=== PATIENT | female | born 1990 | race Caucasian/White ===

== ENCOUNTER → 2017-11-16 | Outpatient (CLI) | payer BC ==
[2017-11-16 14:17] LABS: Basophils % (A) 0 %; Eosinophils % (A) 0 %; HCT 40.4 % (34.0-46.0); HGB 13.6 gm/dL (11.4-16.0); Lymphocytes # (A) 0.8 k/uL (1.0-4.8); Lymphocytes % (A) 22 %; MCH 30.9 pg (25.0-35.0); MCHC 33.8 g/dL (31.0-37.0); MCV 91.5 fL (80.0-100.0); Mean Platelet Volume 6.8; Monocytes # (A) 0.2 k/uL (0-1.0); Monocytes % (A) 6 %; Neutrophils # (A) 2.6 k/uL (1.3-7.7); Neutrophils % (A) 69 %; Platelet Count 182 k/uL (150-450); RBC 4.41 m/uL (3.80-5.40); RDW 12.5 % (11.5-15.5); WBC 3.8 k/uL (3.8-10.6)
[2017-11-16 14:34] LABS: Anion Gap 8 mmol/L; Blood Urea Nitrogen 11 mg/dL (7-17); Carbon Dioxide 26 mmol/L (22-30); Chloride 107 mmol/L (98-107); Glucose 92 mg/dL (74-99); Potassium 3.9 mmol/L (3.5-5.1); Sodium 141 mmol/L (137-145)
== END | disposition home or self-care (01) ==
LOC: LABPAT 13:03
PROVIDERS: ATTEND Obstetrics & Gynecology
DX: Z01.812 Encounter for preprocedural laboratory examination (principal); N93.8 Other specified abnormal uterine and vaginal bleeding; N94.6 Dysmenorrhea, unspecified; R10.2 Pelvic and perineal pain
CPT/HCPCS: 36415; 80051; 82565; 82947; 84520; 85025; 87086

== ENCOUNTER 2017-11-23 05:37 | Observation (INO) | payer BC ==
[2017-11-16 12:29] VITALS: BMI 20.9
--- NOTE | 2017-11-19 14:45 | HP ---
HISTORY AND PHYSICAL HISTORY OF PRESENT ILLNESS: The patient is a 27-year-old 1, para 1-0-0-1, who presents to the hospital after several previous visits with similar complaints with a long-standing history of presumptive endometriosis that has become significantly interruptive of her lifestyle. She has had multiple interventions with many different types of oral contraceptive pills as well as the NuvaRing and Depo-Provera. She has undergone a course of Lupron in the past as well. She is currently using Depo-Provera with breakthrough symptoms and continues to have irregular bleeding. She is no longer interested in any further childbearing and has requested definitive therapy with hysterectomy. She also reports that she has moderate dyspareunia and feels that she is exhausted all medical treatment options. She is particularly concerned as both her mother and grandmother had similar situations that ultimately required hysterectomy. PAST MEDICAL HISTORY: Significant for some anxiety as well as the history of endometriosis which is presumptive in nature. She additionally has a history of possible PID in the past. PAST SURGICAL HISTORY: None. OBSTETRICAL HISTORY: 1, para 1-0-0-1 with 1 term vaginal delivery without complications. FAMILY HISTORY: Noncontributory. SOCIAL HISTORY: The patient is and works at [employer]. She is a nonsmoker and denies any alcohol, drugs, or any other social concerns. CURRENT MEDICATIONS: 1. Include Depo-Provera 150 mg intramuscularly q.3 months. 2. Aleve as needed. ALLERGIES: No known drug allergies. REVIEW OF SYSTEMS: Is confined to history of present illness. In general, this is a well-developed, well-nourished white female in no acute distress. HEENT demonstrates PERRLA, EOMI, her oropharynx is clear. Her neck is supple and without adenopathy and the thyroid is normal to palpation. Her heart has a regular rhythm and rate without murmur. Her lungs are clear to auscultation bilaterally in all rodríguez. Her abdomen is without any respiratory. Her abdomen is nondistended, has normoactive bowel sounds, soft, nontender, and without any palpable masses, hepatosplenomegaly, or hernias. Her back is without spinal or CVA tenderness. Her extremities without any cyanosis, clubbing, or edema and are nontender to palpation bilaterally. Pelvic examination demonstrates normal external genitalia and the [place] with normal vaginal mucosa and cervix. There is no cervical motion tenderness. Scratch at. There is mild cervical motion tenderness. Uterus is approximately 4-5 weeks in size, mid plane, mobile, and slightly tender. The adnexa are normal without any apparent masses but do have moderate tenderness bilaterally. ASSESSMENT AND PLAN: Chronic pelvic pain with a presumptive history of endometriosis, dyspareunia, and dysfunctional uterine bleeding: Given the degree of symptoms and the patient's attempts at multiple forms of medical intervention as well as her request for definitive treatment with hysterectomy, we have opted to proceed with Da Jose Eduardo robotically assisted laparoscopic hysterectomy with bilateral salpingectomy, diagnostic cystoscopy and possible bilateral oophorectomy pending the findings. Our intention is to leave the ovaries in situ unless removal is indicated at the time of surgery. The risks and complications of the procedures have been thoroughly discussed including the risks for bleeding, bleeding requiring transfusion, infection, and injury to local structures to specifically include the bowel, bladder, and ureters. We also discussed injuries unique to Da Jose Eduardo surgery to specifically include thermal injury and subsequent vaginal cuff dehiscence. She has understood all these concerns and has agreed to proceed. Dictation is done on November 19 for surgery on November 23, 2017. MMODL / IJN: [id number] /
[~2017-11-23 05:37] MED LIST: ceFAZolin IN SWFI 2 GM/20 ML SYRINGE IVP ONE
[2017-11-23] MEDS ORDERED: SCOPOLAMINE 1.5MG/72HR PATCH TRANSDERM ONE (05:54)
[2017-11-23] MEDS ORDERED: MIDAZOLAM 2 MG/2 ML VIAL IV PRN (05:54)
[2017-11-23] MEDS ORDERED: DEXAMETHASONE SOD PHOSPHATE 10 MG/ML 1 ML VIAL IV ONE (05:54)
[2017-11-23] MEDS ORDERED: ONDANSETRON 4 MG/2 ML VIAL IVP ONE (05:54)
[2017-11-23] MEDS ORDERED: LACTATED RINGERS 1,000 ML IV ONE ×2 (06:30→06:33)
[2017-11-23] MEDS: LIDOCAINE 1% 20 ML VIAL (10MG/ML) FOR IV START INTRADERMA PRN ×2 (06:30→06:33)
[2017-11-23] MEDS ORDERED: fentaNYL (PF) 50 MCG/ML 2 ML AMP ONE (07:30)
[2017-11-23] MEDS ORDERED: GLYCOPYRROLATE 0.2 MG/ML 2 ML VIAL ONE (07:30)
[2017-11-23] MEDS ORDERED: LIDOCAINE 1% INJ 10MG/ML (20 ML MDV) ONE (07:30)
[2017-11-23] MEDS ORDERED: NEOSTIGMINE 1 MG/ML 10 ML VIAL ONE (07:30)
[2017-11-23] MEDS ORDERED: VECURONIUM 10 MG VIAL IV ONE (07:30)
[2017-11-23] MEDS ORDERED: HYDROmorphone (PF) 1 MG/ML ONE (07:30)
[2017-11-23] MEDS ORDERED: PROPOFOL 10 MG/ML 20 ML VIAL IV ONE (07:30)
[2017-11-23] MEDS ORDERED: SUCCINYLCHOLINE CHLORIDE 100 MG/5 ML SYR IV ONE (07:30)
[2017-11-23] MEDS ORDERED: MIDAZOLAM 2 MG/2 ML VIAL ONE (07:30)
[2017-11-23] MEDS ORDERED: METOCLOPRAMIDE 5 MG/ML 2 ML VIAL IVP PRN (07:42)
[2017-11-23] MEDS ORDERED: SIMETHICONE 80 MG CHEWABLE PO PRN (07:42)
[2017-11-23] MEDS ORDERED: Acetaminophen-Codeine 300-30mg TAB PO PRN (07:42)
[2017-11-23] MEDS ORDERED: diphenhydrAMINE 50 MG/ML 1 ML VIAL IVP PRN (07:42)
[2017-11-23] MEDS ORDERED: ONDANSETRON 4 MG/2 ML VIAL IVP PRN (07:42)
[2017-11-23] MEDS ORDERED: BUPIVACAINE (PF) 0.5% 30 ML VIAL SQ ONE (08:34)
--- NOTE | 2017-11-23 09:32 | P.OP ---
Date of Procedure: 11/23/17 Preoperative Diagnosis: . Chronic pelvic pain #2. Severe dysmenorrhea #3. Dyspareunia Postoperative Diagnosis: Same Procedure(s) Performed: #1. Da Jose Eduardo robotically assisted laparoscopic hysterectomy with bilateral salpingectomy #2. Diagnostic cystoscopy Anesthesia: MI Surgeon: Joseph Gonzalez Estimated Blood Loss (ml): 100 IV fluids (ml): 600 Urine output (ml): 250 Pathology: other (Uterus and bilateral fallopian tubes) Condition: stable Disposition: PACU Operative Findings: Preoperative pelvic examination demonstrated a 4 week anteverted mobile normal shaped uterus with normal adnexa bilaterally. Uterus sounded to approximately 8 cm using the [employer] uterine manipulator. Intraoperatively, the uterus, tubes, and ovaries were entirely normal to inspection. There was some general vascular congestion within the pelvis which may have been accentuated by the patient's thin habitus. There was no obvious evidence of endometriosis. What was seen of the bowel and upper abdomen appeared normal. Following the hysterectomy, the laparoscopic and hysteroscopic view of the bladder demonstrated no evidence of damage from either side and the bilateral ureteral jets were seen. Description of Procedure: The patient was prepped and draped in usual fashion after general endotracheal anesthesia was administered by the anesthesiologist. A weighted speculum was placed and the anterior lip of the surgical single-tooth tenaculum. The Cruz catheter was placed. A [employer] uterine manipulator was used with a medium cup and seated in the usual fashion without difficulty. Attention was then turned to the abdomen where an incision was made just above the umbilicus by approximately 1-2 cm in the midline where a 5 mm optical trocar was placed in the abdominal cavity without difficulty. A pneumoperitoneum was established. A site was selected approximately 12 cm lateral to the optical port in the right lower quadrant and approximately 3-4 cm below it where an 8 mm incision was made in the transverse plane allowing insertion of an 8 mm da Jose Eduardo port under direct visualization without difficulty. A similar operation was carried out on the left side. The area between the left port and the optical port was bisected and a site selected approximately 3 cm superior to the optical port where a 10 mm incision was made in the transverse plane allowing insertion of an assistance port under direct vision station without difficulty. The camera was switched to the right lower quadrant allowing removal of the fibroid layer optical port and replacement with a 8mm da Jose Eduardo optical port. The robot was brought in and docked without difficulty. The right arm was loaded with a monopolar cautery scissors while the left arm was loaded with a [place] bipolar cautery scissors. I then presented to the console at which time the right fallopian tube was elevated and dissection of the fallopian tube from the underlying structures is carried out with bipolar and monopolar cautery. At the level of the utero-ovarian ligaments, [place] was utilized to thoroughly cauterize across the ovarian ligament and round ligament and then it was divided sharply with scissors. The broad ligament was then dissected to the level of the uterine vasculature. The bladder flap was undermined and incised sharply across the midline and reflected distally. The uterine vessels were skeletonized and then cauterized with the [place] bipolar cautery forceps. Attention was turned to the left side where similar operations were carried out without difficulty. The bladder peritoneum was developed to the midline and then the bladder reflected distally with both blunt and sharp dissection. The uterine vasculature after skeletonization was then thoroughly cauterized with the [place] as well. Each vascular pedicle was then divided sharply with the monopolar cautery scissors. The vaginal cuff was opened posteriorly identifying the cup of the V care device. This was followed circumferentially using the monopolar cautery scissors to divide the specimen from the patient. It was removed into the vagina and the scissors replaced with a laparoscopic suturing device. A stitch of 2-0 Stratafix suture was utilized to close the vaginal cuff from margin to margin in standard fashion without difficulty. Any points of bleeding along the way were made hemostatic using the [place] bipolar cautery. Hemostasis following closure appeared to be excellent. Thorough suction irrigation was then carried out and all pedicles reexamined and found to be hemostatic. The camera was left in place and the instrumentation removed. I then returned to the patient and remove the Cruz catheter allowing placement of a diagnostic cystoscope. The dome of the bladder was examined from both the laparoscopic and cystoscopic side and appeared to have no damage of any kind. The bilateral ureteral hallux was noted to have peristalsed in the view of the scope. All instrumentation was then removed including the abdominal ports. The incisions were closed with interrupted subcuticular stitches of 4-0 Vicryl followed by half-inch Steri- Strips placed with Mastisol. The incisions were infused with a total of 10 mL of half percent Marcaine divided equally between the incisions. Estimated blood loss for the case was approximately 100 mL. There were no complications. All sponge, instrument, and needle counts were correct. The patient tolerated the procedure well and proceeded to the recovery room in stable condition.
[2017-11-23] MEDS: HYDROmorphone 1 MG/ML 1 ML SYRINGE IVP PRN ×4 (09:56→10:25)
[2017-11-23] MEDS: KETOROLAC 30 MG/ML 1 ML VIAL IVP PRN ×3 (09:56→22:30)
[2017-11-23] MEDS: LACTATED RINGERS 1,000 ML IV SCH ×2 (13:30→22:31)
[2017-11-23] MEDS: SENNOSIDES-DOCUSATE SODIUM 1 EACH TAB PO SCH (22:38)
[2017-11-24] MEDS: LACTATED RINGERS 1,000 ML IV SCH (03:28)
[2017-11-24] MEDS: KETOROLAC 30 MG/ML 1 ML VIAL IVP PRN (06:18)
[2017-11-24 07:55] LABS: Basophils % (A) 0 %; Eosinophils % (A) 0 %; HGB 11.9 gm/dL (11.4-16.0); Lymphocytes # (A) 1.5 k/uL (1.0-4.8); Lymphocytes % (A) 16 %; MCH 31.3 pg (25.0-35.0); MCHC 33.2 g/dL (31.0-37.0); MCV 94.2 fL (80.0-100.0); Mean Platelet Volume 6.5; Monocytes # (A) 0.5 k/uL (0-1.0); Monocytes % (A) 5 %; Neutrophils % (A) 77 %; Platelet Count 232 k/uL (150-450); RBC 3.82 m/uL (3.80-5.40); RDW 12.8 % (11.5-15.5); WBC 9.2 k/uL (3.8-10.6)
[2017-11-24] MEDS: Acetaminophen-Codeine 300-30mg TAB PO PRN ×2 (08:32→21:13)
[2017-11-24] MEDS: SENNOSIDES-DOCUSATE SODIUM 1 EACH TAB PO SCH ×2 (08:34→21:13)
[2017-11-24] MEDS: IBUPROFEN 600 MG TAB PO PRN (16:28)
[2017-11-25] MEDS: IBUPROFEN 600 MG TAB PO PRN (06:43)
[2017-11-25 08:10] VITALS: BP 106/61; PULSE 63; RESP 18; TEMP 98.5
--- NOTE | 2017-11-25 08:46 | P.PN ---
Subjective Progress Note Date: 11/25/17 The patient was prepared for discharge from all aspects aside from the fact that she was having difficulty voiding. She was able to void very small volumes but bladder scan showed moderate to significant amounts of urine still in the bladder. As result, she remained overnight for further evaluation. She reports this morning that she has been voiding more significant volumes was smaller residuals and has no other problems or discomfort which is not managed by her current medications. Objective - Vital Signs Vital signs: Vital Signs Temp 98.5 F 11/25/17 08:00 Pulse 63 11/25/17 08:00 Resp 18 11/25/17 08:00 BP 106/61 11/25/17 08:00 Pulse Ox 98 11/25/17 08:00 Intake & Output 11/24/17 11/25/17 11/25/17 18:59 06:59 18:59 Output Total 3510 1100 Balance -3510 -1100 Output: Urine 1350 1100 Post Void Residual 2160 Other: # Voids 2 1 - Exam In general, this is a well-developed, well-nourished white female in no acute distress. Her heart has a regular rhythm and rate without murmur. Her lungs are clear to auscultation bilaterally in all rodríguez. Her abdomen is nondistended, soft, nontender, and without any palpable masses. The incisions are intact and appeared to be healing well. Her extremities without any cyanosis, clubbing, or edema and are nontender to palpation bilaterally. - Labs CBC & Chem 7: 11/24/17 06:30 Assessment and Plan (1) Dysmenorrhea Current Visit: Yes Status: Acute Code(s): N94.6 - DYSMENORRHEA, UNSPECIFIED SNOMED Code(s): 387252547 (2) Dyspareunia Current Visit: Yes Status: Acute Code(s): [id number] - SNOMED Code(s): 36240799 (3) Chronic pelvic pain in female Current Visit: Yes Status: Acute Code(s): R10.2 - PELVIC AND PERINEAL PAIN; G89.29 - OTHER CHRONIC PAIN SNOMED Code(s): 243200548 Plan: The patient has been able to void more effectively and at this point is voiding more than half of the volume in her bladder. We will discharge her to home to follow-up in the office as previously noted. The previously dictated discharge summary is unchanged aside from the day of discharge. She understands to call for any further ongoing bladder symptoms or anything else that concerned her.
== END 2017-11-25 11:00 | disposition home or self-care (01) ==
LOC: OR 05:37 → 4FBP 09:29 → OR 23:30 → 4FBP 23:30
PROVIDERS: ADMIT Obstetrics & Gynecology; ATTEND Obstetrics & Gynecology
DX: N94.6 Dysmenorrhea, unspecified (principal); G89.29 Other chronic pain; R10.2 Pelvic and perineal pain; N94.10 Unspecified dyspareunia; N92.6 Irregular menstruation, unspecified; N93.8 Other specified abnormal uterine and vaginal bleeding; F41.9 Anxiety disorder, unspecified; Z79.3 Long term (current) use of hormonal contraceptives; Z79.899 Other long term (current) drug therapy
CPT/HCPCS: 52000; 58571; S2900; 81025; 85025; 86850; 86900; 86901; 88307